=== PATIENT | male | born 1965 | race Caucasian/White ===

== ENCOUNTER 2019-01-01 09:30 | Day surgery (SDC) | payer OTHER ==
[~2019-01-01 09:30] MED LIST: DEXMEDETOMIDINE HCL 200 MCG/2 ML VIAL IV ONE; KETAMINE HCL 10 MG/ML ML IJ ONE; LACTATED RINGERS 1,000 ML IV.SOLN IV ONE; MIDAZOLAM HCL 2 MG/2 ML VIAL ONE; fentaNYL CITRATE/PF 100 MCG/2 ML INJ. ONE
== END 2019-01-01 12:51 | disposition home or self-care (01) ==
LOC: OPSURG 09:30
PROVIDERS: ATTEND Physical Medicine & Rehabilitation
DX: M47.817 Spondylosis without myelopathy or radiculopathy, lumbosacral region (principal)
CPT/HCPCS: 64635; 64636; J1815; J2250; J3010; J7120